=== PATIENT | male | born 1990 | race Caucasian/White ===

== ENCOUNTER 2019-09-03 20:15 | Emergency (ER) | payer BC ==
[~2019-09-03] VITALS: Ht 182.9 cm; Wt 90.7 kg
[2019-09-03] MEDS ORDERED: LORAZEPAM INJ 2 MG/ML VIAL IVP ONE (20:30)
[2019-09-03] MEDS ORDERED: IV NS 0.9% 1,000 ML BAG IV ONE ×2 (20:30)
[2019-09-03] MEDS ORDERED: ONDANSETRON HCL/PF 4 MG/2 ML VIAL IVP ONE (20:30)
[2019-09-03] MEDS ORDERED: ONDANSETRON HCL/PF 4 MG/2 ML VIAL ONE (20:30)
[2019-09-03] MEDS ORDERED: LORAZEPAM INJ 2 MG/ML VIAL ONE (20:31)
[2019-09-03 20:45] LABS: BASOPHILS # (AUTO) 0.1 /CMM (0.0-0.2); BASOPHILS % (AUTO) 1.2 % (0.0-2.0); EOSINOPHILS % (AUTO) 3.2 % (0.0-6.0); HEMATOCRIT 45 % (39-51); HEMOGLOBIN 15.1 g/dL (13.5-17.5); LYMPHOCYTES # (AUTO) 3.3 /CMM (0.8-4.8); LYMPHOCYTES % (AUTO) 35.3 % (20.0-44.0); MEAN CORPUSCULAR HGB CONC 34 g/dl (31.0-36.0); MEAN CORPUSCULAR VOLUME 92 fL (80-96); MONOCYTES # (AUTO) 0.5 /CMM (0.1-1.30); MONOCYTES % (AUTO) 4.7 % (2.0-12.0); NEUTROPHILS # (AUTO) 5.3 /CMM (1.8-8.9); NEUTROPHILS % (AUTO) 55.6 % (43.0-81.0); PLATELET COUNT (AUTO) 478 /CMM (150-450); WHITE BLOOD COUNT (AUTO) 9.5 K/uL (4.3-11.0)
--- NOTE | 2019-09-03 20:48 | NUR ---
CHARBEL C/O ALCOHOL INTOXICATION. 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 PT AWAKE, YELLING INCOMPREHENSIVELY AND CRYING. APPEARS VERY INTOXICATED. REFUSING TO ANSWER QUESTIONS. NOTED TACHYCARDIA, MD AWARE. RESPIRATIONS EVEN AND UNLABORED. SKIN INTACT. NO ACUTE DISTRESS NOTED AT THIS TIME. PLACED ON MONITOR, WILL CONTINUE TO MONITOR
[2019-09-03 20:54] LABS: APPEARANCE,URINE Clear (CLEAR); BILIRUBIN,URINE Negative (NEGATIVE); BLOOD, URINE Negative Ery/uL (NEGATIVE); COLOR,URINE Yellow (YELLOW); KETONES,URINE Negative (NEGATIVE); LEUKOCYTE ESTERASE ,URINE Negative (NEGATIVE); NITRITE, URINE Negative (NEGATIVE); PROTEIN,URINE Negative (NEGATIVE); UGLUCOSE Negative (NEGATIVE); UROBILINOGEN,URINE 0.2 EU/dL (0.2)
[2019-09-03 20:56] LABS: CALCIUM, SERUM 8.8 mg/dL (8.5-10.1); CREATININE 0.6 mg/dL (0.6-1.3); POTASSIUM 4.1 mmol/L (3.5-5.1)
[2019-09-03 21:08] LABS: ALBUMIN 4.3 g/dL (3.4-5.0); BILIRUBIN,DIRECT 0.1 mg/dL (0.0-0.2); BILIRUBIN,TOTAL 0.3 mg/dL (0.2-1.0); TOTAL PROTEIN, SERUM 8.5 g/dL (6.4-8.2)
[2019-09-03 21:09] LABS: SALICYLATE 0.9 mg/dL (2.8-20.0)
--- NOTE | 2019-09-03 22:58 | NUR ---
PT RESTING COMFORTABLY IN BED. VITAL SIGNS STABLE. STILL ON MONITOR, WILL CONTINUE TO MONITOR
--- NOTE | 2019-09-03 23:09 | NUR ---
SURENDRA (MOM) CONTACT INFORMATION: [phone] MJ (FRIEND) CONTACT INFORMATION: [phone]
--- NOTE | 2019-09-04 02:13 | NUR ---
PT RESTING COMFORTABLY IN BED,EASILY AROUSABLE. AAOX4, DENIES SI/HI AT THIS TIME. VITAL SIGNS STABLE. NO ACUTE DISTRESS NOTED AT THIS TIME. STILL ON MONITOR, WILL CONTINUE TO MONITOR
--- NOTE | 2019-09-04 02:13 | NUR ---
Note jevon in ED - 09/04/19 at 0215 by PERICO PT RESTING COMFORTABLY IN BED,EASILY AROUSABLE. AAOX4. VITAL SIGNS STABLE. NO ACUTE DISTRESS NOTED AT THIS TIME. STILL ON MONITOR, WILL CONTINUE TO MONITOR
--- NOTE | 2019-09-04 04:26 | NUR ---
PT AWAKE. AAOX4. AMBULATORY WITH STEADY GAIT. MEDICALLY CLEARED FOR DISCHARGE. INSTRUCTED NOT TO DRIVE, PT VERBALIZED UNDERSTANDING AND WAS PICKED UP BY MOTHER. IV removed. Catheter intact and site benign. Pressure and 4x4 applied to site. No bleeding noted. Patient discharged to home in stable condition. Written and verbal after care instructions given. Patient verbalizes understanding of instruction.
[2019-09-04 04:27] VITALS: BP 131/71
== END 2019-09-04 04:28 | disposition home or self-care (01) ==
LOC: ER 20:15
DX: R45.851 Suicidal ideations (principal); F10.129 Alcohol abuse with intoxication, unspecified; F20.9 Schizophrenia, unspecified; F32.9 Major depressive disorder, single episode, unspecified; Y90.8 Blood alcohol level of 240 mg/100 ml or more
CPT/HCPCS: 36415; 80048; 80076; 80305; 80307; 80329; 81001; 85025; 96374; 96375; 99284; G0480; J2060; J2405; J7030; 81000-TC

== ENCOUNTER 2021-01-04 06:39 | Emergency (ER) | payer BC ==
[~2021-01-04] VITALS: Ht 182.9 cm; Wt 86.2 kg
--- NOTE | 2021-01-04 06:55 | NUR ---
BIBRA WITH C/O ALCOHOL WITHDRAWAL SYMPTOMS. LAST DRINNK WAS 01/01. +N/V +COLD TO TOUCH +DIAPHORETIC +MILD TREMORS. A/OX4.
[2021-01-04] MEDS ORDERED: IV NS 0.9% 1,000 ML BAG IV ONE (07:00)
[2021-01-04] MEDS ORDERED: ONDANSETRON HCL/PF 4 MG/2 ML VIAL IVP ONE (07:00)
[2021-01-04] MEDS ORDERED: LORAZEPAM INJ 2 MG/ML VIAL IV ONE (07:00)
--- NOTE | 2021-01-04 07:00 | NUR ---
ADMITTING OFFICE ESCORT AT BEDSIDE
[2021-01-04] MEDS ORDERED: ONDANSETRON HCL/PF 4 MG/2 ML VIAL ONE (07:09)
[2021-01-04] MEDS ORDERED: LORAZEPAM INJ 2 MG/ML VIAL ONE (07:10)
--- NOTE | 2021-01-04 07:18 | NUR ---
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
[2021-01-04 07:22] LABS: BASOPHILS % (AUTO) 0.7 % (0.0-2.0); EOSINOPHILS % (AUTO) 0.7 % (0.0-6.0); HEMATOCRIT 46 % (39-51); HEMOGLOBIN 15.6 g/dL (13.5-17.5); LYMPHOCYTES # (AUTO) 1.1 K/uL (0.8-4.8); LYMPHOCYTES % (AUTO) 18.6 % (20.0-44.0); MEAN CORPUSCULAR HGB CONC 34 g/dl (31.0-36.0); MEAN CORPUSCULAR VOLUME 94 fL (80-96); MONOCYTES # (AUTO) 0.7 K/uL (0.1-1.30); MONOCYTES % (AUTO) 11.1 % (2.0-12.0); NEUTROPHILS # (AUTO) 4.2 K/uL (1.8-8.9); NEUTROPHILS % (AUTO) 68.9 % (43.0-81.0); PLATELET COUNT (AUTO) 202 K/uL (150-450); WHITE BLOOD COUNT (AUTO) 6.1 K/uL (4.3-11.0)
[2021-01-04 07:34] LABS: ALBUMIN 3.9 g/dL (3.4-5.0); BILIRUBIN,DIRECT 0.7 mg/dL (0.0-0.2); BILIRUBIN,TOTAL 1.8 mg/dL (0.2-1.0); CALCIUM, SERUM 9.2 mg/dL (8.5-10.1); CREATININE 1.7 mg/dL (0.6-1.3); TOTAL PROTEIN, SERUM 8.1 g/dL (6.4-8.2)
[2021-01-04 07:36] LABS: POTASSIUM 2.7 mmol/L (3.5-5.1)
--- NOTE | 2021-01-04 07:50 | NUR ---
The patient is sleeping in ER bed #10. Responsive to verbal stimuli. Respiration regular and unlabored. Attached to the monitor. Will continue to monitor the patient.
[2021-01-04] MEDS ORDERED: POTASSIUM CHLORIDE 20 MEQ TAB.PRT.SR PO ONE ×2 (08:00→08:05)
[2021-01-04] MEDS ORDERED: Thiamine 100 MG in IV D5W 50 ML IV SCH (08:00)
--- NOTE | 2021-01-04 08:02 | NUR ---
MOVE SHEET SUBMITTED.
[2021-01-04] MEDS ORDERED: POTASSIUM CL. PREMIX PERIPHER. 50 ML ONE ×4 (08:05→11:40)
[2021-01-04] MEDS ORDERED: IRBE300T19 PO (08:32)
[2021-01-04] MEDS ORDERED: FINA1TAB11 PO (08:32)
[2021-01-04] MEDS ORDERED: DILT240C94 PO (08:32)
[2021-01-04] MEDS ORDERED: DOXA8TAB79 PO (08:32)
[2021-01-04] MEDS: POTASSIUM CL. PREMIX PERIPHER. 50 ML IV SCH ×4 (08:56→11:41)
[2021-01-04] MEDS ORDERED: CHLO25CA22 PO (10:24)
--- NOTE | 2021-01-04 10:40 | NUR ---
SS consult SS consult requested for alcohol withdrawal. Pt is a 30-year-old, male. Per chart, pt was brought in by ambulance from home for alcohol withdrawal on 01/04/21. SW met with pt at his bedside in the emergency department. Pt was alert and oriented x4. Pt was calm and cooperative. Pt was in a euthymic mood with an anxious affect. Pt appeared well-groomed and appropriately dressed. Pt stated that he currently lives at home with his father at [address] [place] [id number]; [phone]. Pt stated that he has social support from his parents and friends. Pt is currently employed and works part-time. Pt reported that he is ambulatory and independent with his ADL's. Pt reported hx of alcohol use and stated that he has "a bottle a day." Pt did not report other substance use hx. Pt reported that he has not utilized support services/treatment for his alcohol abuse in the past but is motivated to seek support at this time. Pt stated, "I stopped drinking cold-turkey on [12/30/20] and had really bad symptoms." Pt reported that he has a hx of Bipolar Disorder and is currently taking psychiatric medication. Pt denied hx of hallucinations and pt denied current suicidal or homicidal ideation. SW offered the pt addiction and mental health resources. Pt accepted the resources and thanked CALVIN. CALVIN discussed D/C plans with the pt. Pt stated that he will either use a rideshare service (i.e. Uber) or will be provided transportation by one of his parents. PLAN: Pt plans to return to his prior living arrangement at the time of D/C. No further intervention at this time, however, SW will remain available as needed. RESOURCES: Counseling--Outpatient [facility] [address], [place] [address] (Specializes in in-depth psychotherapy for emotional distress: anxiety, depression, interpersonal conflicts, life transitions, childhood abuse) PSYCHIATRIC OUTPATIENT SERVICES [facility] Partial Hospitalization and Intensive Outpatient Program ([facility]) [address] [facility] [address] [facility] Partial Hospitalization and Outpatient Program [address] [place] [address] [facility] Partial Hospitalization and Outpatient Program [address] [facility] [place] [address] [address] [facility] [address] [place] [address] [facility] Partial Hospitalization and Outpatient Program [address] [place], [place] [phone] Substance use resources provided included: [facility] Substance Abuse Self-Helpline (SAS) ; [facility] [address] [place] [address] ; [facility] [address] [facility] [address] ; [facility] [address] [facility] [id number] ; [facility] [address] [facility] [phone] ; [facility] [address] [facility] [phone] ; [facility]; [facility] [place]; [place] [facility]; Alcoholics Anonymous -[facility]
[2021-01-04 12:48] VITALS: BP 116/66
--- NOTE | 2021-01-04 12:48 | NUR ---
IV removed. Catheter intact and site benign. Pressure and 4x4 applied to site. No bleeding noted.Patient discharged to home in stable condition. Written and verbal after care instructions given. Patient verbalizes understanding of instruction.
== END 2021-01-04 12:48 | disposition home or self-care (01) ==
LOC: ER 06:41
DX: F10.139 Alcohol abuse with withdrawal, unspecified (principal); E87.6 Hypokalemia; F20.9 Schizophrenia, unspecified; R25.1 Tremor, unspecified; N17.9 Acute kidney failure, unspecified; R74.01 Elevation of levels of liver transaminase levels; Z20.822 Contact with and (suspected) exposure to COVID-19
CPT/HCPCS: 36415; 71045; 80048; 80076; 83690; 85025; 85730; 87426; 93005; 96361; 96365; 96366; 96368; 96375; 99291; C9803; J2060; J2405; J3411; J3480 ×4; J7040; J7060